=== PATIENT | male | born 1990 | race Two or more races ===

== ENCOUNTER 2022-02-10 18:23 | Emergency (ER) | payer SELFPAY ==
[2022-02-10 20:30] LABS: BASOPHIL 0.6 % (0-2); EOSINOPHIL 6.6 % (0-5); HCT 43.5 % (42.0-52.0); HGB 15.1 g/dl (13.2-18.0); LYMPHOCYTE 24.3 % (15-48); MCH 29.5 pg (25.0-31.0); MCHC 34.7 g/dL (32.0-36.0); MCV 85.1 fL (78.0-100.0); MONOCYTE 7.3 % (0-12); MPV 9.6 fL (6.0-9.5); NEUTROPHIL 60.9 % (41-80); NRBC 0; PLT 276 K/uL (150-400); RBC 5.11 M/uL (4.70-6.00); RDW 13.7 % (11.5-14.0); WBC 7.2 K/uL (4.0-10.5)
[2022-02-10 20:31] LABS: BILIRUBIN NEGATIVE (NEGATIVE); BLOOD NEGATIVE Ery/uL (NEGATIVE); CLARITY CLEAR (CLEAR); COLOR YELLOW (YELLOW); GLUCOSE (U) NORMAL (NORMAL); LEUKOCYTES NEGATIVE Leu/uL (NEGATIVE); NITRITE NEGATIVE (NEGATIVE); PROTEIN NEGATIVE (NEGATIVE); SPECIFIC GRAVITY >=1.030 (1.001-1.030); UROBILINOGEN 0.2 mg/dL (0.2-1.0)
[2022-02-10 20:46] LABS: BILIRUBIN - TOTAL 0.4 mg/dL (0.2-1.0); CREATININE 0.72 mg/dL (0.67-1.17); GLOBULIN (CALCULATION) 3.5 g/dL; POTASSIUM 3.9 mmol/L (3.5-5.1); TOTAL PROTEIN 7.5 g/dL (6.4-8.2)
[2022-02-10] MEDS ORDERED: MEDROL 4MG DOSEP4 MG PO (22:17)
[2022-02-10] MEDS ORDERED: NORCO 5-325 TA1 EACH PO (22:17)
[2022-02-10] MEDS ORDERED: VIBRAMYCIN100 MG PO (22:17)
[2022-02-10] MEDS ORDERED: NAPROXEN500 MG PO (22:17)
[2022-02-14 21:06] LABS: CHLAMYDIA TRACHOMATIS, NAA Negative (Negative); NEISSERIA GONORRHOEAE, NAA Negative (Negative)
== END 2022-02-10 22:30 | disposition home or self-care (01) ==
LOC: FER 18:23
PROVIDERS: Internal Medicine
DX: N50.811 Right testicular pain (principal); M54.41 Lumbago with sciatica, right side
CPT/HCPCS: 36415; 80053; 81003; 84145; 85025; 87491; 87591; J0696